=== PATIENT | female | born 1975 | race Caucasian/White ===

== ENCOUNTER 2018-10-07 07:00 | Outpatient (REF) | payer MEDICAID, SELFPAY ==
--- NOTE | 2018-10-07 11:45 | PAPFT_PTH ---
PATIENT: Vi Moon LOC: [facility] U#:[id number] AGE/SX: 42/F ROOM: RE10/07/[address]: Padmini Lopez : 1975 BED: DIS: 10/07/2018 SPEC #: [id number] RECD: 10/10/18 12:28 STATUS: TAZ REQ #: [id number] JOAN: 10/07/18 11:[address]: Padmini Lopez DEPT: ON LICENSE OF [facility] Cytology RECD BY: Liat Gonzales ENTERED: 10/10/18 12:29 SP TYPE: PAPFT OTHR DR: Maxwell Means Tissues: 1 - CX/ENDOCX FOR PAP SMEARS Procedures: PAP THIN PREP/[facility] Screening HPV DNA PROBE Comments: [id number]
== END 2018-10-07 07:20 ==
LOC: NCHCN 07:00
PROVIDERS: PCP Nurse Practitioner Family; Visit Provider Nurse Practitioner Family
DX: Z12.4 Encounter for screening for malignant neoplasm of cervix (principal); Z11.51 Encounter for screening for human papillomavirus (HPV)
CPT/HCPCS: 88142; 87624

== ENCOUNTER 2024-06-22 17:44 | Outpatient (REF) | payer MEDICAID, SELFPAY ==
--- NOTE | 2024-06-22 12:20 | PAPFT_PTH ---
PATIENT: Vi Moon [facility] U[facility][id number] AGE/SX: 48/F ROOM: RE06/22/[address]: Consuelo Kaba : 1975 BED: DIS: 06/22/2024 SPEC #: [id number] RECD: 06/22/24 18:41 STATUS: [email or web address] REQ #: [id number] JOAN: 06/22/24 12:[address]: Consuelo Kaba DEPT: [facility] Cytology RECD BY: Saray Hinojosa ENTERED: 06/22/24 18:41 SP TYPE: PAPFT OTHR DR: Maxwell Means Tissues: 1 - CX/ENDOCX FOR PAP SMEARS Procedures: PAP THIN PREP/[facility] Screening HPV DNA PROBE Comments: [id number] (HPV 16 & 18/45)
[2024-06-22 19:20] LABS: Hemoglobin A1C 5.4 % (<5.7)
[2024-06-22 19:34] LABS: Calculated LDL 126 mg/dL (<100); Cholesterol 196 mg/dL (<200); HDL Cholesterol 57 mg/dL (40-60); TSH (W/Ref FT4) 1.16 uIU/mL (0.36-3.74); Triglyceride 66 mg/dL (<150)
== END 2024-06-22 17:45 | disposition home or self-care (01) ==
LOC: NCHCN 17:44
PROVIDERS: PCP Nurse Practitioner Family; Visit Provider Nurse Practitioner Family
DX: Z11.51 Encounter for screening for human papillomavirus (HPV) (principal); Z13.220 Encounter for screening for lipoid disorders; Z13.29 Encounter for screening for other suspected endocrine disorder; Z13.1 Encounter for screening for diabetes mellitus; Z01.419 Encounter for gynecological examination (general) (routine) without abnormal findings
CPT/HCPCS: 80061; 88142; 83036; 84443; 87624

== ENCOUNTER 2024-07-14 00:20 | Outpatient (CLI) | payer MEDICAID, SELFPAY ==
--- NOTE | 2024-07-14 12:04 | DI.MAMMO_ITS ---
Exam(s) MAMMO SCREENING EXAM: MAMMO SCREENING CLINICAL HISTORY: SCREENING MAMMO Z12.31 TECHNIQUE: Bilateral full field digital CC and MLO mammographic images were obtained with 3D tomosyn thesis and utilizing computer aided detection (CAD). COMPARISON: This is a baseline examination. FINDINGS: Masses/Architectural Distortion: There is a question of a nodular retroareolar density in the central right breast on the MLO view. Microcalcifications: No suspicious pleomorphic-type are seen. Skin Thickening/Nipple Retraction: None. IMPRESSION: 1. Question a nodular density in the retroareolar region of the right breast on the MLO view. 2. This area should be further evaluated with a spot compression view. Right breast ultrasound may b e indicated at that time. BI-RADS Category 0 - Incomplete: Need additional imaging evaluation Breast Density - Category C - Heterogeneously dense Breast density category C or D implies that the patient has dense breast tissue. Dense breast tissue is very common and is not abnormal but dense breast tissue can make it harder to find cancer on a ma mmogram. Also, dense breast tissue may increase their breast cancer risk. This information about the result of the mammogram report was provided to the patient to raise their awareness. Use this report when you speak with the patient about their risks for breast cancer, which includes their family hist ory. At that time, you may recommend for more screening tests (Ultrasound or MRI) as they might be us eful based on their risk. A negative radiographic report should not delay biopsy if a dominant or clinically suspicious mass is present. Up to ten percent of cancers are not identified on mammography. A negative report may reinforce clinical impression. Adenosis and dense breasts may obscure an underlying neoplasm. False positive reports average 6 to 10%. Patient will receive a letter notifying them of these results.
== END 2024-07-14 00:40 ==
LOC: DI 00:20
PROVIDERS: PCP Nurse Practitioner Family; Visit Provider Nurse Practitioner Family
DX: Z12.31 Encounter for screening mammogram for malignant neoplasm of breast (principal); R92.333 Mammographic heterogeneous density, bilateral breasts
CPT/HCPCS: 77063; 77067

== ENCOUNTER 2024-07-20 02:02 | Outpatient (CLI) | payer MEDICAID, SELFPAY ==
--- NOTE | 2024-07-20 | DI.US_ITS ---
Exam(s) MG MAMMO SCREEN CALL BACK UNI US BREAST RT LIMITED EXAM: MG MAMMO SCREEN CALL BACK UNI CLINICAL HISTORY: ? NODULAR DENSITY IN RETROAREOLAR REGION RT BREAST R92.8 ABNL MAMMO. TECHNIQUE: Craniocaudal and mediolateral oblique spot compression digital Mammography views of the right breast with Tomosynthesis and right breast ultrasound. COMPARISON: MG MG MAMMO SCREENING from 07/14/2024 US US BREAST RT LIMITED from 07/20/2024 FINDINGS: Mammography/Tomosynthesis: Masses: Decreased prominence of area of nodularity in the subareolar region. Architectural Distortion: None seen. Microcalcifictions: No suspicious pleomorphic-type are seen. Skin Thickening/Nipple Retraction: None. Right breast US: Echotexture: Normal appearance of the glandular tissue. Shadowing: No suspicious foci. Cyst: 6 x 13 x 12 millimeter cyst in the retroareolar region of the 12 o'clock position. Distal smal ler cyst measuring 8 x 5 x 7 millimeters in the retroareolar region. Solid lesions: None seen. Ductal dilation: Mildly prominent retro areolar ducts are present. IMPRESSION: 1. No evidence of malignancy is noted. Area of nodularity on mammogram corresponds to a cyst by ultr asound. 2. Unless there is more urgent need, follow-up screening mammography is recommended, as per [employer] guidelines. 3. The findings were discussed with the patient on the date of the examination. BI-RADS Category 2 - Benign Findings Breast Density - Category C - Heterogeneously dense A mammogram that demonstrates density of C or D indicates the patient's breast tissue is dense. Dense breast tissue is very common and is not abnormal, but dense breast tissue can make it harder to find cancer on a mammogram. Also, dense breast tissue may increase their breast cancer risk. This informa tion about the result of the mammogram report was provided to the patient to raise their awareness. U se this report when you speak with the patient about their risks for breast cancer, which includes th eir family history. At that time, you may recommend for more screening tests (Ultrasound or MRI) as t hey might be useful based on their risk. A negative radiographic report should not delay biopsy if a dominant or clinically suspicious mass is present. Up to ten percent of cancers are not identified on mammography. A negative report may reinforce clinical impression. Adenosis and dense breasts may obscure an underlying neoplasm. False positive reports average 6 to 10%. Patient will receive a letter notifying them of these results.
== END 2024-07-20 02:22 ==
LOC: DI 02:03
PROVIDERS: PCP Nurse Practitioner Family; Visit Provider Nurse Practitioner Family
DX: Z12.31 Encounter for screening mammogram for malignant neoplasm of breast (principal); N60.01 Solitary cyst of right breast
CPT/HCPCS: 76642; 77063; 77067